=== PATIENT | female | born 2005 | race Two or more races ===

== ENCOUNTER 2023-08-13 18:02 | Emergency (ER) | payer OTHER ==
[2023-08-13 18:15] VITALS: BP 119/69; O2SAT 100
--- NOTE | 2023-08-13 18:46 | ED Physician Documentation ---
PD HPI BACK PAIN - Stated complaint Stated Complaint: BACK PX - Chief complaint Chief Complaint: Back Pain - History obtained from History obtained from: Patient, Friend - History of Present Illness Pain level max: 5 Pain level now: 5 Location: Lower, Right Quality: Pain, Spasm Associated symptoms: No: Fever, Weakness, Numbness, Incontinent of urine, Unable to urinate, Hematuria Contributing factors: No: Trauma, Anticoagulated, Cancer, IVDA - Additional information Additional information: 18-year-old female presents to the emergency department stating that she works at a [place] and was helping clean up a resident when she felt pain in her right low back. Worse with movement, worse with bending. No loss of bowel or bladder control. No other trauma. Not anticoagulated. No IV drug use. No numbness or tingling. No weakness. Has not taken anything for pain. She states it feels better to stand up than sit. Review of Systems Constitutional: denies: Fever, Chills : denies: Now EGA Musculoskeletal: denies: Neck pain Neurologic: denies: Headache PD PAST MEDICAL HISTORY - Past Medical History Past Medical History: Yes Psych: Depression, Post traumatic stress disorder - Past Surgical History Past Surgical History: No - Present Medications Home Medications: Ambulatory Orders Medication Instructions Recorded Confirmed Cyclobenzaprine [Flexeril] 10 mg PO TID PRN #20 tablet 08/13/23 Ibuprofen [Motrin] 800 mg PO Q8H PRN #30 tablet 08/13/23 Sertraline HCl 100 mg PO DAILY 08/13/23 08/13/23 - Allergies Allergies/Adverse Reactions: Allergies Allergy/AdvReac Type Severity Reaction Status Date / Time No Known Drug Allergies Allergy Verified 08/13/23 18:05 - Social History Does the pt smoke?: Yes Smoking Status: Current every day smoker Does the pt drink ETOH?: No Does the pt have substance abuse?: No - Immunizations Immunizations are current?: Yes PD ED PE NORMAL - Vitals Vital signs reviewed: Yes - General General: Alert and oriented X 3, No acute distress - HEENT HEENT: Moist mucous membranes - Neck Neck: Supple, no meningeal sign - Cardiac Cardiac: RRR - Respiratory Respiratory: No respiratory distress, Clear bilaterally - Back Back: No spinal TTP, Other (No midline tenderness palpation or percussion. No step-off or deformity. Mild tenderness to the right low lumbar area, paraspinal.) - Derm Derm: Warm and dry - Extremities Extremities: No edema, No calf tenderness / cord - Neuro Neuro: Alert and oriented X 3, No motor deficit, No sensory deficit, Other (Normal bilateral lower extremity patellar and ankle jerk reflexes. Normal great toe extension bilaterally. no saddle anesthesia) - Psych Psych: Normal mood, Normal affect Results - Vitals Vitals: Vital Signs - 24 hr 08/13/23 18:06 Temperature 37 C Heart Rate 82 Respiratory 16 Rate Blood Pressure 119/69 O2 Saturation 100 Oxygen O2 Source Room air PD Medical Decision Making - ED course Complexity details: considered differential (No cauda equina, no spinal epidural abscess, no fracture, no aortic dissection or evidence of aneursym rupture), d/w patient ED course: 18-year-old female with lumbar strain. Will place on muscle relaxants and pain medication for home. L&I paperwork completed. No indication for imaging. No evidence of cauda equina, fracture. No radiculopathy. No neurological deficits. Patient is not . Patient counseled regarding signs and symptoms for which I believe and urgent re-evaluation would be necessary. Patient with good understanding of and agreement to plan and is comfortable going home at this time This document was made in part using voice recognition software. While efforts are made to proofread this document, sound alike and grammatical errors may occur. Departure - Departure Disposition: 01 Home, Self Care Clinical Impression: Low back strain Qualifiers: Encounter type: initial encounter Qualified Code(s): S39.012A - Strain of muscle, fascia and tendon of lower back, initial encounter Condition: Good Instructions: ED Sprain Strain Lumbar Follow-Up: your,doctor in 1 week [Other] [facility] [place] [Provider Group] Prescriptions: Cyclobenzaprine [Flexeril] 10 mg PO TID PRN #20 tablet PRN Reason: Spasms Ibuprofen [Motrin] 800 mg PO Q8H PRN #30 tablet PRN Reason: PAIN &/OR FEVER Comments: Your prescriptions were sent to [facility] in [place]. Please continue to gently stretch your back at home. Please follow-up with your doctor for further care. Please return if you worsen. Discharge Date/Time: 08/13/23 18:55
[2023-08-13] MEDS: IBUPROFEN 800 MG TABLET PO STA (18:50)
[2023-08-13] MEDS: CYCLOBENZAPRINE 10 MG TABLET PO STA (18:51)
== END 2023-08-13 18:55 | disposition home or self-care (01) ==
LOC: ED 18:02
DX: S39.012A Strain of muscle, fascia and tendon of lower back, initial encounter (principal); X58.XXXA Exposure to other specified factors, initial encounter; Y93.F9 Activity, other caregiving; Y99.0 Civilian activity done for income or pay; F17.200 Nicotine dependence, unspecified, uncomplicated
CPT/HCPCS: 1040M; 99282; 99283; A9270

== ENCOUNTER 2023-09-06 17:16 | Outpatient (CLI) | payer OTHER ==
--- NOTE | 2023-09-07 11:25 | XRAY Report ---
PROCEDURE: Lumbar Spine 2 View INDICATIONS: STRAIN OF MUSCLE, FASCIA AND TENDON OF LOWER BACK TECHNIQUE: 3 views of the lumbar spine were acquired. COMPARISON: None. FINDINGS: Bones: 5 [id number] vertebrae are present. There is normal bony alignment. No vertebral body compression fractures. Vertebral body height and disc spaces are maintained. No suspicious bony lesio ns. Soft tissues: Overlying bowel gas pattern is normal. No suspicious soft tissue calcifications. IMPRESSION: No acute fracture or traumatic subluxation of the lumbar spine. Reviewed by: Aston Hodges MD on 09/07/2023 11:24 AM PDT Approved by: Aston Hodges MD on 09/07/2023 11:24 AM PDT Station ID: [id number]
== END 2023-09-06 17:17 | disposition home or self-care (01) ==
LOC: DI 17:16
PROVIDERS: ATTEND Family Medicine
DX: S39.012A Strain of muscle, fascia and tendon of lower back, initial encounter (principal)

== ENCOUNTER 2024-01-28 09:00 | Outpatient (CLI) | payer BC ==
[2024-01-28 12:17] LABS: BASOPHILS % (AUTO) 0.2 %; BILIRUBIN,URINE NEGATIVE (NEGATIVE); EOSINOPHILS # (AUTO) 0.1 10^3/uL (0.0-0.7); EOSINOPHILS % (AUTO) 1.4 %; GLUCOSE, URINE (UA) NEGATIVE (NEGATIVE); HCT - HEMATOCRIT 40.8 % (37.0-47.0); HGB - HEMOGLOBIN 13.3 g/dL (12.0-16.0); KETONES,URINE (UA) NEGATIVE (NEGATIVE); LEUKOCYTE ESTERASE, URINE NEGATIVE (NEGATIVE); LYMPHOCYTES # (AUTO) 0.6 10^3/uL (1.5-3.5); MEAN CORPUSCULAR HEMOGLOBIN 28.1 pg (27.0-31.0); MEAN CORPUSCULAR HGB CONC 32.6 g/dL (32.0-36.0); MEAN CORPUSCULAR VOLUME 86.3 fL (81.0-99.0); MONOCYTES # (AUTO) 0.8 10^3/uL (0.0-1.0); NEUTROPHILS # (AUTO) 8.5 10^3/uL (1.5-6.6); NEUTROPHILS % (AUTO) 83.8 %; NITRITE,URINE NEGATIVE (NEGATIVE); OCCULT BLOOD,URINE MODERATE (NEGATIVE); PH,URINE 8.5 PH (5.0-7.5); PLT - PLATELET COUNT 293 10^3/uL (130-450); PROTEIN,URINE NEGATIVE (NEGATIVE); RED BLOOD COUNT 4.73 10^6/uL (4.20-5.40); UROBILINOGEN,URINE 0.2 (NORMAL) E.U./dL (NORMAL); WHITE BLOOD COUNT 10.1 x10^3/uL (4.8-10.8)
[2024-01-28 12:19] LABS: CLARITY,URINE CLEAR (CLEAR)
[2024-01-28 12:35] LABS: BACTERIA,URINE Few /HPF (None Seen); SQUAMOUS EPITHELIAL CELL,UR MANY Squamous (<= Few); WBC,URINE 0-3 /HPF (0-5)
[2024-01-28 13:01] LABS: ALBUMIN 4.4 g/dL (3.2-5.5); ALBUMIN/GLOBULIN RATIO 1.4 (1.0-2.2); ALKALINE PHOSPHATASE 66 IU/L (42-121); ALT ALANINE AMINOTRANSFERASE 18 IU/L (10-60); AMYLASE 23 U/L (28-100); AST ASPARTATE AMINOTRANSFERASE 20 IU/L (10-42); BILIRUBIN,TOTAL 0.5 mg/dL (0.2-1.0); BUN - BLOOD UREA NITROGEN 7 mg/dL (6-20); CALCIUM 9.2 mg/dL (8.5-10.3); CARBON DIOXIDE - CO2 25 mmol/L (21-32); CHLORIDE 103 mmol/L (101-111); CREATININE 0.7 mg/dL (0.6-1.3); GFR - MDRD 107 (>89); GLUCOSE 94 mg/dL (74-104); POTASSIUM 3.6 mmol/L (3.5-4.5); SODIUM 135 mmol/L (135-145); TOTAL PROTEIN 7.6 g/dL (6.4-8.9)
[2024-01-28 13:02] LABS: LIPASE < 10 U/L (11-82)
== END 2024-01-28 09:15 | disposition home or self-care (01) ==
LOC: LAB.N 09:00
PROVIDERS: ATTEND Specialist
DX: R10.9 Unspecified abdominal pain (principal)
CPT/HCPCS: 36415; 80053; 81001; 82150; 83690; 85025; 87086

== ENCOUNTER 2024-01-28 19:20 | Emergency (ER) | payer BC ==
[2024-01-28 19:38] VITALS: BP 130/72; O2SAT 98
[2024-01-28 20:08] LABS: BASOPHILS % (AUTO) 0.3 %; EOSINOPHILS # (AUTO) 0.1 10^3/uL (0.0-0.7); EOSINOPHILS % (AUTO) 1.3 %; HCT - HEMATOCRIT 41.1 % (37.0-47.0); LYMPHOCYTES # (AUTO) 1.1 10^3/uL (1.5-3.5); LYMPHOCYTES % (AUTO) 13.9 %; MEAN CORPUSCULAR HEMOGLOBIN 27.3 pg (27.0-31.0); MEAN CORPUSCULAR HGB CONC 31.6 g/dL (32.0-36.0); MEAN CORPUSCULAR VOLUME 86.2 fL (81.0-99.0); MEAN PLATELET VOLUME 10.6 fL (7.9-10.8); MONOCYTES # (AUTO) 0.9 10^3/uL (0.0-1.0); MONOCYTES % (AUTO) 11.7 %; NEUTROPHILS # (AUTO) 5.5 10^3/uL (1.5-6.6); NEUTROPHILS % (AUTO) 72.3 %; PLT - PLATELET COUNT 274 10^3/uL (130-450); RED BLOOD COUNT 4.77 10^6/uL (4.20-5.40); RED CELL DISTRIBUTION WIDTH 13.1 % (12.0-15.0); WHITE BLOOD COUNT 7.6 x10^3/uL (4.8-10.8)
[2024-01-28 20:17] LABS: BILIRUBIN,URINE NEGATIVE (NEGATIVE); GLUCOSE, URINE (UA) NEGATIVE (NEGATIVE); KETONES,URINE (UA) NEGATIVE (NEGATIVE); LEUKOCYTE ESTERASE, URINE NEGATIVE (NEGATIVE); NITRITE,URINE NEGATIVE (NEGATIVE); OCCULT BLOOD,URINE MODERATE (NEGATIVE); PH,URINE 6.5 PH (5.0-7.5); PROTEIN,URINE NEGATIVE (NEGATIVE); UROBILINOGEN,URINE 0.2 (NORMAL) E.U./dL (NORMAL)
[2024-01-28 20:19] LABS: CLARITY,URINE HAZY (CLEAR); HCG UR QUAL NEGATIVE
[2024-01-28 20:25] LABS: ALBUMIN 4.2 g/dL (3.2-5.5); ALBUMIN/GLOBULIN RATIO 1.3 (1.0-2.2); BILIRUBIN,TOTAL 0.4 mg/dL (0.2-1.0); CALCIUM 9.4 mg/dL (8.5-10.3); CREATININE 0.7 mg/dL (0.6-1.3); POTASSIUM 3.7 mmol/L (3.5-4.5); TOTAL PROTEIN 7.4 g/dL (6.4-8.9)
[2024-01-28 20:26] LABS: BACTERIA,URINE None Seen /HPF (None Seen); SQUAMOUS EPITHELIAL CELL,UR MOD Squamous (<= Few); WBC,URINE 0-3 /HPF (0-5)
[2024-01-28 20:45] LABS: CORONAVIRUS 229E-RESP PCR NOT DETECTED; CORONAVIRUS HKU1-RESP PCR NOT DETECTED; CORONAVIRUS NL63-RESP PCR NOT DETECTED; CORONAVIRUS OC43-RESP PCR NOT DETECTED
[2024-01-28 20:46] LABS: B. PARAPERTUSSIS- RESP PCR PAN NOT DETECTED; B. PERTUSSIS- RESP PCR PANEL NOT DETECTED; C. PNEUMONIAE- RESP PCR PANEL NOT DETECTED; HUMAN METAPNEUMOVIRUS NOT DETECTED; INFLUENZA A- RESP PCR PANEL NOT DETECTED; INFLUENZA B - RESP PCR PANEL NOT DETECTED; M. PNEUMONIAE- RESP PCR PANEL NOT DETECTED; PARAINFLUENZA VIRUS 1 NOT DETECTED; PARAINFLUENZA VIRUS 2 NOT DETECTED; PARAINFLUENZA VIRUS 3 NOT DETECTED; PARAINFLUENZA VIRUS 4 NOT DETECTED; RHINOVIRUS/ENTEROVIRUS NOT DETECTED; RSV- RESP PCR PANEL NOT DETECTED; SARS-CoV-2 -RESP PCR PANEL DETECTED
--- NOTE | 2024-01-28 21:47 | ED Physician Documentation ---
History of Present Illness - Stated complaint Stated Complaint: ABD PX,SALEEM - Chief complaint Chief Complaint: Abd Pain - History obtained from History obtained from: Patient - Additonal information Additional information: The patient comes to the emergency department chief complaint of lower abdominal pain in the suprapubic and just to the left area, nausea, sore throat, runny nose, and ear pain. She states she started to have the lower abdominal pain about 4 days ago and that the other symptoms developed over the last couple of days. She states that one of her family members who lives with her tested positive for COVID shortly before the patient began to have symptoms. The patient denies any fevers or chills. No dysuria. No vaginal symptoms. No diarrhea. She has been vomiting today. She has a dry cough but no shortness of breath. No back pain. No other complaints at this time. PD PAST MEDICAL HISTORY - Past Medical History Past Medical History: Yes Psych: Depression, Post traumatic stress disorder - Past Surgical History Past Surgical History: No - Present Medications Home Medications: Ambulatory Orders Medication Instructions Recorded Confirmed Cyclobenzaprine [Flexeril] 10 mg PO TID PRN #20 tablet 08/13/23 Ibuprofen [Motrin] 800 mg PO Q8H PRN #30 tablet 08/13/23 Ondansetron [Ondansetron Odt] 8 mg PO PRN PRN 01/28/24 01/28/24 cephALEXin [Keflex] 500 mg PO BID 01/28/24 01/28/24 - Allergies Allergies/Adverse Reactions: Allergies Allergy/AdvReac Type Severity Reaction Status Date / Time No Known Drug Allergies Allergy Verified 01/28/24 19:37 - Social History Does the pt smoke?: Yes Smoking Status: Current every day smoker Does the pt drink ETOH?: No Does the pt have substance abuse?: No - Immunizations Immunizations are current?: Yes PD ED PE NORMAL - Vitals Vital signs reviewed: Yes - General General: Alert and oriented X 3, No acute distress, Well developed/nourished, Other (The patient is sitting up on the bed with one leg tucked under her, appearing comfortable.) - HEENT HEENT: Atraumatic, PERRL, EOMI, Moist mucous membranes - Neck Neck: Supple, no meningeal sign - Cardiac Cardiac: RRR, No murmur - Respiratory Respiratory: No respiratory distress, Clear bilaterally - Abdomen Abdomen: Soft, Non distended, Other (Mild to moderate suprapubic tenderness that extends just to the left. No rebound or guarding. No mass.) - Derm Derm: Normal color, Warm and dry, No rash - Extremities Extremities: No deformity, No edema - Neuro Neuro: Alert and oriented X 3, Other (Grossly intact) - Psych Psych: Normal mood, Normal affect Results - Vitals Vitals: Vital Signs - 24 hr 01/28/24 19:29 Temperature 37.1 C Heart Rate 103 H Respiratory 17 Rate Blood Pressure 130/72 O2 Saturation 98 Oxygen O2 Source Room air - Labs Labs: Laboratory Tests 01/28/24 01/28/24 01/28/24 19:42 20:03 20:03 WBC 7.6 RBC 4.77 Hgb 13.0 Hct 41.1 MCV 86.2 MCH 27.3 MCHC 31.6 L RDW 13.1 Plt Count 274 MPV 10.6 Neut # (Auto) 5.5 Lymph # (Auto) 1.1 L Fleming # (Auto) 0.9 Eos # (Auto) 0.1 Baso # (Auto) 0.0 Absolute Nucleated RBC 0.00 Nucleated RBC % 0.0 Sodium 136 Potassium 3.7 Chloride 103 Carbon Dioxide 27 Anion Gap 6.0 BUN 6 Creatinine 0.7 Estimated GFR (MDRD) 107 Glucose 94 Calcium 9.4 Total Bilirubin 0.4 AST 20 ALT 19 Alkaline Phosphatase 75 Total Protein 7.4 Albumin 4.2 Globulin 3.2 Albumin/Globulin Ratio 1.3 Lipase 16 Urine Color Urine Clarity Urine pH Ur Specific Lock[place] Urine Protein Urine Glucose (UA) Urine Ketones Urine Occult Blood Urine Nitrite Urine Bilirubin Urine Urobilinogen Ur Leukocyte Esterase Urine RBC Urine WBC Ur Squamous Epith Cells Urine Bacteria Ur Microscopic Review Urine Culture Comments Urine HCG, Qual Nasal Adenovirus (PCR) NOT DETECTED Nasal B. parapertussis DNA (PCR) NOT DETECTED Nasal Coronavir 229E PCR NOT DETECTED Nasal Coronavir HKU1 PCR NOT DETECTED Nasal Coronavir NL63 PCR NOT DETECTED Nasal Coronavir OC43 PCR NOT DETECTED Nasal Enterovir/Rhinovir PCR NOT DETECTED Nasal Influenza B PCR NOT DETECTED Nasal Influenza A PCR NOT DETECTED Nasal Parainfluen 1 PCR NOT DETECTED Nasal Parainfluen 2 PCR NOT DETECTED Nasal Parainfluen 3 PCR NOT DETECTED Nasal Parainfluen 4 PCR NOT DETECTED Nasal RSV (PCR) NOT DETECTED Nasal B.pertussis DNA PCR NOT DETECTED Nasal C.pneumoniae (PCR) NOT DETECTED Turner Human Metapneumo PCR NOT DETECTED Nasal M.pneumoniae (PCR) NOT DETECTED Nasal SARS-CoV-2 (PCR) DETECTED A 01/28/24 20:06 WBC RBC Hgb Hct MCV MCH MCHC RDW Plt Count MPV Neut # (Auto) Lymph # (Auto) Fleming # (Auto) Eos # (Auto) Baso # (Auto) Absolute Nucleated RBC Nucleated RBC % Sodium Potassium Chloride Carbon Dioxide Anion Gap BUN Creatinine Estimated GFR (MDRD) Glucose Calcium Total Bilirubin AST ALT Alkaline Phosphatase Total Protein Albumin Globulin Albumin/Globulin Ratio Lipase Urine Color LIGHT YELLOW Urine Clarity HAZY Urine pH 6.5 Ur Specific [place] <=1.005 Urine Protein NEGATIVE Urine Glucose (UA) NEGATIVE Urine Ketones NEGATIVE Urine Occult Blood MODERATE H Urine Nitrite NEGATIVE Urine Bilirubin NEGATIVE Urine Urobilinogen 0.2 (NORMAL) Ur Leukocyte Esterase NEGATIVE Urine RBC 6-10 H Urine WBC 0-3 Ur Squamous Epith Cells MOD Squamous H Urine Bacteria None Seen Ur Microscopic Review INDICATED Urine Culture Comments NOT INDICATED Urine HCG, Qual NEGATIVE Nasal Adenovirus (PCR) Nasal B. parapertussis DNA (PCR) Nasal Coronavir 229E PCR Nasal Coronavir HKU1 PCR Nasal Coronavir NL63 PCR Nasal Coronavir OC43 PCR Nasal Enterovir/Rhinovir PCR Nasal Influenza B PCR Nasal Influenza A PCR Nasal Parainfluen 1 PCR Nasal Parainfluen 2 PCR Nasal Parainfluen 3 PCR Nasal Parainfluen 4 PCR Nasal RSV (PCR) Nasal B.pertussis DNA PCR Nasal C.pneumoniae (PCR) Turner Human Metapneumo PCR Nasal M.pneumoniae (PCR) Nasal SARS-CoV-2 (PCR) PD Medical Decision Making - ED course Complexity details: reviewed results, re-evaluated patient, considered differential, d/w patient ED course: The patient overall appeared fairly well. She did have a tender abdomen, And labs and UA were ordered. A viral PCR panel was sent and came back positive for COVID. The patient's labs showed a normal white blood cell count and UA was without signs of infection. I discussed the possibility of imaging with the patient, but she stated that she did not want want to have imaging at this time and definitely did not want an IV placed for IV contrast. The patient overall was well-appearing and afebrile, But I have discussed with her that it is important that she consider coming back to the emergency department if her abdominal symptoms are worsening. The patient is agreeable. Departure - Departure Disposition: 01 Home, Self Care Clinical Impression: COVID-19 Abdominal pain Qualifiers: Abdominal location: left lower quadrant Qualified Code(s): R10.32 - Left lower quadrant pain Condition: Stable Instructions: ED Abdominal Pain Female Non-Specific Abdominal Pain, ED Viral Syndrome Comments: Your viral panel was positive for COVID. Otherwise, your workup including blood work and urinalysis, was negative. It is not clear what is causing the pain in your lower abdomen, but for now, you have declined to have any imaging done. If the pain continues to worsen, we will need to reconsider having imaging done. Otherwise, as far as the COVID, as it is a viral illness, and will be expected to pass on its own and anywhere from several days to a couple of weeks. Please drink plenty of fluids and take ibuprofen and Tylenol as needed for fever or other discomforts. Forms: PCP List Discharge Date/Time: 01/28/24 21:50
== END 2024-01-28 21:50 | disposition home or self-care (01) ==
LOC: ED 19:20
DX: U07.1 COVID-19 (principal); R10.32 Left lower quadrant pain; Z79.899 Other long term (current) drug therapy
CPT/HCPCS: 36415; 80053; 81001; 81003; 81025; 83690; 85025; 87086; 87633; 99283